=== PATIENT | female | born 1965 | race African-American/Black ===

== ENCOUNTER → 2017-06-25 | Outpatient (CLI) | payer OTHER | END | disposition home or self-care (01) | LOC: HKI 14:24 | DX: M17.12 Unilateral primary osteoarthritis, left knee (principal); E11.9 Type 2 diabetes mellitus without complications; Z79.4 Long term (current) use of insulin; Z79.82 Long term (current) use of aspirin | CPT/HCPCS: 20610 ==

== ENCOUNTER 2017-08-15 09:52 | Emergency (ER) | payer OTHER ==
[2017-08-15] MEDS: KETOROLAC 30 MG INJ IM (12:34)
== END 2017-08-15 14:10 | disposition home or self-care (01) ==
LOC: FTE 09:52
DX: S46.911A Strain of unspecified muscle, fascia and tendon at shoulder and upper arm level, right arm, initial encounter (principal); I10 Essential (primary) hypertension; E03.9 Hypothyroidism, unspecified; X58.XXXA Exposure to other specified factors, initial encounter; Y92.9 Unspecified place or not applicable; Z79.82 Long term (current) use of aspirin; Z79.4 Long term (current) use of insulin
CPT/HCPCS: 73030; 73030-RT; 96372; 99284-25

== ENCOUNTER 2017-11-20 09:59 | Day surgery (SDC) | payer OTHER ==
[2017-11-20] MEDS: BUPIVACAINE 0.25% (MPF) 30 ML INJ INJ
[~2017-11-20 09:59] MED LIST: CEFAZOLIN 1 GM INJ; DEXAMETHASONE 4 MG/ML 1 ML INJ; LIDOCAINE 2% (SDV) 5 ML INJ; ONDANSETRON 4 MG INJ
[2017-11-20] MEDS ORDERED: MIDAZOLAM 1 MG/ML 2 ML INJ (12:10)
[2017-11-20] MEDS ORDERED: FENTAnyl 50 MCG/ML VIAL (12:10)
[2017-11-20] MEDS ORDERED: PROPOFOL 20 ML (12:11)
[2017-11-20] MEDS ORDERED: METOCLOPRAMIDE 10 MG INJ (12:12)
[2017-11-20] MEDS ORDERED: IPRATROPIUM (NEB) 0.5 MG/2.5 ML AMP HHN ×2 (12:30→13:00)
[2017-11-20] MEDS ORDERED: hydrALAzine 20 MG INJ IV ×2 (12:30→13:00)
[2017-11-20] MEDS ORDERED: LABETALOL HCL 20MG INJ IV ×2 (12:30→13:00)
[2017-11-20] MEDS ORDERED: DIPHENHYDRAMINE 50 MG INJ IV ×2 (12:30→13:00)
[2017-11-20] MEDS ORDERED: HYDROmorphONE (0.2 MG/ML) 10ML SYG IV ×4 (12:30→13:00)
[2017-11-20] MEDS ORDERED: FENTAnyl 50 MCG/ML VIAL IV ×4 (12:30→13:00)
[2017-11-20] MEDS ORDERED: BUPIVACAINE 0.25% (MPF) 30 ML INJ (12:44)
[2017-11-20] MEDS ORDERED: MEPERIDINE 25 MG INJ IV (13:00)
[2017-11-20] MEDS ORDERED: ONDANSETRON 4 MG INJ IV (13:00)
[2017-11-20] MEDS ORDERED: KETOROLAC 30 MG INJ IV (13:00)
[2017-11-20] MEDS ORDERED: PHENYLephrine (100 MCG/ML) 5ML SYG (13:02)
[2017-11-20] MEDS ORDERED: BACITRACIN/POLYMYXIN 28.35 GM OINT TOP (13:27)
[2017-11-20] MEDS: ONDANSETRON 4 MG INJ IV (13:57)
[2017-11-20] MEDS: MEPERIDINE 25 MG INJ IV (13:58)
[2017-11-20] MEDS: KETOROLAC 30 MG INJ IV (13:58)
[2017-11-20] MEDS ORDERED: HYDROCODONE/APAP (5/325) TAB PO (14:00)
== END 2017-11-20 15:38 | disposition home or self-care (01) ==
LOC: SDS 09:59
DX: L91.0 Hypertrophic scar (principal); I10 Essential (primary) hypertension; I25.2 Old myocardial infarction; E66.9 Obesity, unspecified; Z68.30 Body mass index [BMI] 30.0-30.9, adult
CPT/HCPCS: 14061; 84703; 88307

== ENCOUNTER → 2018-02-17 | Outpatient (CLI) | payer OTHER | END | disposition home or self-care (01) | LOC: HKI 14:12 | DX: M17.0 Bilateral primary osteoarthritis of knee (principal) | CPT/HCPCS: 20610; 20610-50 ==

== ENCOUNTER 2018-08-21 07:59 | Emergency (ER) | payer OTHER ==
[2018-08-21] MEDS: DIAZEPAM 5 MG/ML SYG IV (08:25)
[2018-08-21] MEDS: KETOROLAC 30 MG INJ IV (08:26)
[2018-08-21 08:29] LABS: ADD MAN DIFF? NO
[2018-08-21 08:33] LABS: BASOPHILS % 0.6 % (0.0-2.0); EOSINOPHILS # 0.1 10^3/ul (0.0-0.5); EOSINOPHILS % 1.1 % (0.0-7.0); HEMATOCRIT 38.9 % (37.0-47.0); HEMOGLOBIN 12.5 g/dl (12.0-16.0); LYMPHOCYTES # 1.8 10^3/ul (0.8-2.9); LYMPHOCYTES % 38.3 % (15.0-51.0); MEAN CORPUSCULAR HEMOGLOBIN 26.1 pg (29.0-33.0); MEAN CORPUSCULAR HGB CONC 32.1 g/dl (32.0-37.0); MEAN CORPUSCULAR VOLUME 81.2 fl (82.0-101.0); MEAN PLATELET VOLUME 8.7 fl (7.4-10.4); MONOCYTE # 0.5 10^3/ul (0.3-0.9); MONOCYTES % 9.6 % (0.0-11.0); NEUTROPHIL # 2.3 10^3/ul (1.6-7.5); NEUTROPHILS % 50.2 % (39.0-77.0); PLATELET COUNT 309 10^3/UL (140-415); RED BLOOD COUNT 4.79 10^6/ul (4.20-5.40); RED CELL DISTRIBUTION WIDTH 14.3 % (11.5-14.5)
[2018-08-21 08:33] LABS: WHITE BLOOD COUNT 4.7 10^3/ul (4.8-10.8)
[2018-08-21 08:48] LABS: ANION GAP 13 (5-13); BLOOD UREA NITROGEN 16 mg/dl (7-20); CALCIUM 9.9 mg/dl (8.4-10.2); CARBON DIOXIDE 23 mmol/L (21-31); CHLORIDE 105 mmol/L (97-110); CREATININE 1.01 mg/dl (0.44-1.00); Estimated GFR > 60 mL/min (>60); GLUCOSE 120 mg/dl (70-220); SODIUM 141 mmol/L (135-144)
[2018-08-21 09:00] LABS: TROPONIN-I < 0.012 ng/ml (0.000-0.120)
== END 2018-08-21 09:25 | disposition home or self-care (01) ==
LOC: E/R 07:59
DX: M62.830 Muscle spasm of back (principal); Z87.891 Personal history of nicotine dependence
CPT/HCPCS: 36415; 80048; 84484; 85025; 93005; 96374; 96375; 99284-25